=== PATIENT | male | born 1965 | race Hispanic/Latino ===

== ENCOUNTER 2019-05-14 19:37 | Emergency (ER) | payer OTHER ==
[2019-05-14] MEDS ORDERED: NA CHLORIDE 0.9% 1,000 ML ONE (20:26)
[2019-05-14 21:11] LABS: Absolute Lymphocytes (CBC) 2.2 K/uL (0.7-4.9); Basophils % 1.2 % (0-1.3); Hematocrit 43.1 % (39.6-49.0); Lymphocytes % 21.6 % (15.3-44.8); MPV 8.1 fL (7.6-11.3); RBC Red Blood Cell Count 4.92 M/uL (4.33-5.43)
[2019-05-14 21:30] LABS: ALT/SGPT 28 U/L (12-78); AST/SGOT 22 U/L (15-37); Albumin 3.5 g/dL (3.4-5.0); Alkaline Phosphatase 75 U/L (45-117); BUN Blood Urea Nitrogen 20 mg/dL (7-18); Bicarbonate 28 mmol/L (21-32); Bilirubin Direct < 0.1 mg/dL (0-0.2); Bilirubin Total 0.4 mg/dL (0.2-1.0); Glucose Level 96 mg/dL (74-106); Lipase 138 U/L (73-393); Potassium 3.7 mmol/L (3.5-5.1); Protein, Total 7.7 g/dL (6.4-8.2); Sodium Level 140 mmol/L (136-145)
[2019-05-14] MEDS ORDERED: KETOROLAC 30 MG/ML INJ ONE (21:37)
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
[2019-05-14] MEDS ORDERED: MORPHINE 4 MG/ML SYR ONE (23:22)
[2019-05-14] MEDS ORDERED: ONDANSETRON 4 MG/2 ML VIAL ONE (23:22)
[2019-05-14 23:45] VITALS: TEMP 98.3
[2019-05-14 23:51] VITALS: BP 137/86; O2SAT 99
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
== END 2019-05-15 03:23 | disposition home or self-care (01) ==
LOC: ER 19:37
DX: S16.1XXA Strain of muscle, fascia and tendon at neck level, initial encounter (principal); S29.012A Strain of muscle and tendon of back wall of thorax, initial encounter; R91.1 Solitary pulmonary nodule; Z85.528 Personal history of other malignant neoplasm of kidney
CPT/HCPCS: 96361; 85025; 80048; 36415; 86900; 86850; 86901; 80076; 83690; 70450; 72125; 71260; 74177; 96375; 96374; 99284; Q9967; J7030; J2405